=== PATIENT | female | born 2000 | race Caucasian/White ===

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

== ENCOUNTER 2019-06-01 21:07 | Emergency (ER) | payer OTHER ==
[~2019-06-01] VITALS: Ht 162.6 cm; Wt 59.0 kg
[~2019-06-01 21:07] MED LIST changes: +MUPIROCIN22 GM TOP
[2019-06-01] MEDS ORDERED: FLONASE 0.05%50 MCG NARES (21:23)
[2019-06-01 22:15] LABS: INFLUENZA A ANTIGEN Negative (Negative); INFLUENZA B ANTIGEN Negative (Negative)
[2019-06-01] MEDS ORDERED: PROMETHAZINE V120 ML PO (22:37)
[2019-06-01 22:46] VITALS: BP 140/70
== END 2019-06-01 22:47 | disposition home or self-care (01) ==
LOC: M.ERS 21:07
PROVIDERS: Physician Assistant
DX: J06.9 Acute upper respiratory infection, unspecified (principal); G47.419 Narcolepsy without cataplexy; F90.9 Attention-deficit hyperactivity disorder, unspecified type; F84.0 Autistic disorder; Z91.040 Latex allergy status; Z88.6 Allergy status to analgesic agent

== ENCOUNTER 2019-06-08 23:11 | Emergency (ER) | payer OTHER ==
[~2019-06-08] VITALS: Ht 162.6 cm; Wt 59.0 kg
[~2019-06-08 23:11] MED LIST changes: +FLONASE 0.05%50 MCG NARES; +PROMETHAZINE V120 ML PO
[2019-06-08 23:33] LABS: URINE BILIRUBIN NEGATIVE (Negative); URINE BLOOD 1+ (Negative); URINE CLARITY CLEAR; URINE COLOR YELLOW; URINE GLUCOSE-RANDOM NEGATIVE (Negative); URINE KETONES NEGATIVE (Negative); URINE LEUKOCYTES-REFLEX NEGATIVE (Negative); URINE NITRITE-REFLEX NEGATIVE (Negative); URINE PROTEIN TRACE (Negative); URINE SPECIFIC GRAVITY >= 1.030 (1.005-1.030); URINE UROBILINOGEN 0.2 E.U./dl (0.2-1.0)
[2019-06-08 23:41] LABS: SQUAMOUS >10 Many /LPF (0-3)
[2019-06-08 23:42] LABS: BACTERIA-REFLEX 1-9 Few /HPF (None Seen); CASTS None Seen /LPF (None Seen); CRYSTALS None Seen /LPF (None Seen); MUCUS 0-3 Light strn/LPF (None Seen); URINE RBC 0-2 Rare /HPF (0-2); URINE WBC-REFLEX 0-5 Rare /HPF (0-5)
[2019-06-08 23:54] LABS: ABSOLUTE BASOPHILS 0.1 thou/uL (0.0-0.2); ABSOLUTE EOSINOPHILS 0.1 thou/uL (0.0-0.7); ABSOLUTE MONOCYTES 0.6 thou/uL (0.0-1.2); ABSOLUTE NEUTROPHILS 2.5 thou/uL (1.6-8.1); BASOPHILS 1.1 %; EOSINOPHILS 2.3 %; HEMATOCRIT 37.6 % (37.0-47.0); HEMOGLOBIN 12.8 gm/dL (12.0-15.0); LYMPHOCYTES 38.1 %; MCH 31.2 pg (26.0-34.0); MCHC 33.9 g/dL (28.0-37.0); MONOCYTES 10.7 %; MPV 8.8 fl. (7.2-11.1); NUCLEATED RBCS 0 /100WBC; PLATELET COUNT* 243 thou/uL (150-400); POLYS 47.8 %; RBC 4.09 mil/uL (4.20-5.00); RDW-CV 12.9 % (10.5-14.5); WBC 5.2 thou/uL (4.0-11.0)
[2019-06-09 00:01] LABS: CALCIUM 9.4 mg/dL (8.5-10.1); CREATININE 0.8 mg/dL (0.6-1.3); POTASSIUM 3.7 mmol/L (3.5-5.1)
[2019-06-09 00:07] LABS: TOTAL BILIRUBIN 0.2 mg/dL (<0.1-1.0); TOTAL PROTEIN 7.4 g/dL (6.4-8.2)
[2019-06-09] MEDS ORDERED: AUGMENTIN 875-1 EACH PO (01:44)
[2019-06-09] MEDS ORDERED: HYDROCODON-ACE1 EAC8 PO (01:44)
[2019-06-09] MEDS ORDERED: ZOFRAN ODT4 MG PO (01:44)
[2019-06-09 01:56] VITALS: BP 126/62
== END 2019-06-09 01:57 | disposition home or self-care (01) ==
LOC: M.ERS 23:11
PROVIDERS: Emergency Medicine
DX: R10.31 Right lower quadrant pain (principal); F90.9 Attention-deficit hyperactivity disorder, unspecified type; Z88.6 Allergy status to analgesic agent; Z91.040 Latex allergy status; Z88.5 Allergy status to narcotic agent

== ENCOUNTER 2019-07-05 20:47 | Emergency (ER) | payer OTHER ==
[~2019-07-05] VITALS: Ht 162.6 cm; Wt 59.0 kg
[~2019-07-05 20:47] MED LIST changes: +HYDROCODON-ACE1 EAC8 PO
[2019-07-05 20:57] VITALS: BP 134/87
[2019-07-05] MEDS ORDERED: VALACYCLOVIR1000 MG PO (21:09)
[2019-07-05] MEDS ORDERED: IBU800 MG PO (21:09)
[2019-07-05] MEDS ORDERED: ZOVIRAX30 GM TOP (21:09)
== END 2019-07-05 21:18 | disposition home or self-care (01) ==
LOC: M.ERS 20:47
DX: B02.9 Zoster without complications (principal); F90.9 Attention-deficit hyperactivity disorder, unspecified type; Z88.6 Allergy status to analgesic agent; Z88.5 Allergy status to narcotic agent; Z91.040 Latex allergy status

== ENCOUNTER 2019-10-31 23:18 | Emergency (ER) | payer OTHER ==
[~2019-10-31] VITALS: Ht 162.6 cm; Wt 63.5 kg
[~2019-10-31 23:18] MED LIST changes: +IBU800 MG PO; +VALACYCLOVIR1000 MG PO; +ZOVIRAX30 GM TOP
[2019-11-01 00:01] LABS: URINE BILIRUBIN NEGATIVE (Negative); URINE BLOOD NEGATIVE (Negative); URINE CLARITY CLEAR; URINE COLOR YELLOW; URINE GLUCOSE-RANDOM NEGATIVE (Negative); URINE KETONES NEGATIVE (Negative); URINE LEUKOCYTES-REFLEX NEGATIVE (Negative); URINE NITRITE-REFLEX NEGATIVE (Negative); URINE PROTEIN NEGATIVE (Negative); URINE SPECIFIC GRAVITY 1.025 (1.005-1.030); URINE UROBILINOGEN 0.2 E.U./dl (0.2-1.0)
[2019-11-01 00:02] LABS: ABSOLUTE EOSINOPHILS 0.1 thou/uL (0.0-0.7); ABSOLUTE LYMPHOCYTES 0.8 thou/uL (0.8-5.3); ABSOLUTE MONOCYTES 0.3 thou/uL (0.0-1.2); ABSOLUTE NEUTROPHILS 2.4 thou/uL (1.6-8.1); BASOPHILS 0.7 %; HEMATOCRIT 37.4 % (37.0-47.0); LYMPHOCYTES 22.5 %; MCH 31.8 pg (26.0-34.0); MCHC 34.8 g/dL (28.0-37.0); MCV 91.4 fL (80.0-100.0); MONOCYTES 7.6 %; MPV 9.1 fl. (7.2-11.1); NUCLEATED RBCS 0 /100WBC; PLATELET COUNT* 187 thou/uL (150-400); POLYS 67.2 %; RBC 4.09 mil/uL (4.20-5.00); RDW-CV 12.8 % (10.5-14.5); WBC 3.6 thou/uL (4.0-11.0)
[2019-11-01 00:09] LABS: CALCIUM 8.3 mg/dL (8.5-10.1); CREATININE 0.8 mg/dL (0.6-1.3); POTASSIUM 3.7 mmol/L (3.5-5.1)
[2019-11-01 00:13] LABS: ALBUMIN 3.8 g/dL (3.4-5.0); TOTAL BILIRUBIN 0.6 mg/dL (<0.1-1.0); TOTAL PROTEIN 6.8 g/dL (6.4-8.2)
[2019-11-01] MEDS ORDERED: CYCLOBENZAPRINE5 MG PO (00:45)
[2019-11-01] MEDS ORDERED: TORADOL 10 MG T10 MG PO (00:45)
[2019-11-01] MEDS ORDERED: HYDROCODON-ACE1 EAC7 PO (00:45)
[2019-11-01 01:17] VITALS: BP 112/52
== END 2019-11-01 01:17 | disposition home or self-care (01) ==
LOC: M.ERS 23:18
PROVIDERS: Personal Emergency Response Attendant
DX: M54.5 Low back pain (principal); F90.9 Attention-deficit hyperactivity disorder, unspecified type; F84.0 Autistic disorder; F12.90 Cannabis use, unspecified, uncomplicated; Z88.5 Allergy status to narcotic agent; Z88.6 Allergy status to analgesic agent; Z91.040 Latex allergy status

== ENCOUNTER 2020-03-28 14:57 | Emergency (ER) | payer OTHER ==
[~2020-03-28] VITALS: Ht 162.6 cm; Wt 59.0 kg
[~2020-03-28 14:57] MED LIST changes: +CYCLOBENZAPRINE5 MG PO; +HYDROCODON-ACE1 EAC7 PO; +TORADOL 10 MG T10 MG PO
[2020-03-28] MEDS ORDERED: PENICILLIN V P500 MG PO (15:24)
[2020-03-28] MEDS ORDERED: PERIDEX 0.12%473 M1 SWISH&SPIT (15:24)
[2020-03-28] MEDS ORDERED: NORCO 5-325 TA1 EAC2 PO (15:25)
[2020-03-28 15:45] VITALS: BP 139/84
== END 2020-03-28 15:47 | disposition home or self-care (01) ==
LOC: M.ERS 14:57
DX: K08.89 Other specified disorders of teeth and supporting structures (principal); Z88.6 Allergy status to analgesic agent; Z91.040 Latex allergy status; Z88.5 Allergy status to narcotic agent

== ENCOUNTER 2020-04-15 18:54 | Emergency (ER) | payer OTHER ==
[~2020-04-15] VITALS: Ht 162.6 cm; Wt 60.8 kg
[~2020-04-15 18:54] MED LIST changes: +NORCO 5-325 TA1 EAC2 PO; +PENICILLIN V P500 MG PO; +PERIDEX 0.12%473 M1 SWISH&SPIT
[2020-04-15 20:32] LABS: ABSOLUTE EOSINOPHILS 0.1 thou/uL (0.0-0.7); ABSOLUTE MONOCYTES 0.4 thou/uL (0.0-1.2); ABSOLUTE NEUTROPHILS 1.9 thou/uL (1.6-8.1); BASOPHILS 1.4 %; EOSINOPHILS 2.5 %; HEMATOCRIT 36.9 % (37.0-47.0); HEMOGLOBIN 12.8 gm/dL (12.0-15.0); LYMPHOCYTES 28.6 %; MCH 31.6 pg (26.0-34.0); MCHC 34.6 g/dL (28.0-37.0); MCV 91.3 fL (80.0-100.0); MONOCYTES 11.2 %; MPV 10.4 fl. (7.2-11.1); NUCLEATED RBCS 0 /100WBC; PLATELET COUNT* 191 thou/uL (150-400); POLYS 56.3 %; RBC 4.04 mil/uL (4.20-5.00); RDW-CV 12.6 % (10.5-14.5); WBC 3.3 thou/uL (4.0-11.0)
[2020-04-15 20:44] LABS: CALCIUM 8.4 mg/dL (8.5-10.1); CREATININE 0.9 mg/dL (0.6-1.3); POTASSIUM 3.8 mmol/L (3.5-5.1)
[2020-04-15 20:50] LABS: ALBUMIN 3.8 g/dL (3.4-5.0); TOTAL BILIRUBIN 0.4 mg/dL (<0.1-1.0); TOTAL PROTEIN 6.4 g/dL (6.4-8.2)
[2020-04-15 21:44] VITALS: BP 118/69
--- NOTE | 2020-04-17 13:58 | EKG ---
[place] [address] ELECTROCARDIOGRAM REPORT Name: VALE WATT Room: [facility]#: [id number] Admission: 04/15/20 Attend Phys: Discharge: 04/15/20 Date of : [birth year] Date of Service: 04/15/20 1900 Report #: [id number] THIS REPORT FOR: //name// [facility] ED Test Date: 2020-04-15 Test Time: 19:00:06 Pat Name: VALE WATT Department: Room: Gender: Outpatient Case Manager: PA : 2000 Requested By: Eileen Hammer Order Number: [id number] MD: Jadon Betancourt Measurements Intervals [place] Rate: 59 P: 90 MI: 96 QRS: 66 QRSD: 122 T: -31 QT: 429 QTc: 425 Interpretive Statements Sinus rhythm Atrial premature complexes in couplets Short MI interval Nonspecific T wave flattening No previous ECG available for comparison Electronically Signed On 04-17-2020 13:57:54 CDT by Jadon Betancourt [email or web address] <ELECTRONICALLY SIGNED> By: Jadon Betancourt MD, [facility] 04/17/20 1357 1900 99 Jadon Betancourt MD, [facility] /EPI
== END 2020-04-15 21:45 | disposition home or self-care (01) ==
LOC: M.ERS 18:54
PROVIDERS: Personal Emergency Response Attendant
DX: R07.89 Other chest pain (principal); M25.552 Pain in left hip; Z88.5 Allergy status to narcotic agent; Z88.6 Allergy status to analgesic agent; Z91.040 Latex allergy status

== ENCOUNTER 2020-04-28 21:55 | Emergency (ER) | payer OTHER ==
[~2020-04-28] VITALS: Ht 162.6 cm; Wt 60.8 kg
[2020-04-28] MEDS ORDERED: COMPAZINE10 M2 PO (23:35)
[2020-04-29 00:01] VITALS: BP 128/62
== END 2020-04-29 00:01 | disposition home or self-care (01) ==
LOC: M.ERS 21:55
DX: G43.909 Migraine, unspecified, not intractable, without status migrainosus (principal); Z88.6 Allergy status to analgesic agent; Z91.040 Latex allergy status

== ENCOUNTER 2020-07-25 19:18 | Emergency (ER) | payer OTHER ==
[~2020-07-25] VITALS: Ht 162.6 cm; Wt 59.0 kg
[~2020-07-25 19:18] MED LIST changes: +COMPAZINE10 M2 PO
[2020-07-25 19:43] LABS: URINE BILIRUBIN NEGATIVE (Negative); URINE BLOOD 1+ (Negative); URINE CLARITY HAZY; URINE COLOR YELLOW; URINE GLUCOSE-RANDOM NEGATIVE (Negative); URINE KETONES NEGATIVE (Negative); URINE LEUKOCYTES-REFLEX TRACE (Negative); URINE NITRITE-REFLEX NEGATIVE (Negative); URINE PROTEIN NEGATIVE (Negative); URINE SPECIFIC GRAVITY 1.025 (1.005-1.030)
[2020-07-25 19:44] LABS: SQUAMOUS >10 Many /LPF (0-3); URINE RBC 0-2 Rare /HPF (0-2); URINE WBC-REFLEX 0-5 Rare /HPF (0-5)
[2020-07-25 19:45] LABS: BACTERIA-REFLEX None Seen /HPF (None Seen)
[2020-07-25] MEDS ORDERED: KEFLEX500 M1 PO (20:33)
[2020-07-25] MEDS ORDERED: CYCLOBENZAPRINE5 MG PO (20:33)
[2020-07-25] MEDS ORDERED: TORADOL 10 MG T10 MG PO (20:33)
[2020-07-25 20:37] VITALS: BP 135/89
[2020-07-25 20:39] LABS: CASTS None Seen /LPF (None Seen); CRYSTALS None Seen /LPF (None Seen)
== END 2020-07-25 20:39 | disposition home or self-care (01) ==
LOC: M.ERS 19:18
PROVIDERS: Personal Emergency Response Attendant
DX: R10.31 Right lower quadrant pain (principal); Z88.6 Allergy status to analgesic agent; Z91.040 Latex allergy status; Z88.5 Allergy status to narcotic agent

== ENCOUNTER 2021-04-12 22:43 | Emergency (ER) | payer OTHER ==
[~2021-04-12] VITALS: Ht 160 cm; Wt 59.0 kg
[~2021-04-12 22:43] MED LIST changes: +KEFLEX500 M1 PO
[2021-04-13 01:44] VITALS: BP 114/71
--- NOTE | 2021-04-13 16:17 | EKG ---
[place] [address] ELECTROCARDIOGRAM REPORT Name: VALE WATT Room: [facility]#: [id number] Admission: 04/12/21 Attend Phys: Discharge: 04/13/21 Date of : [birth year] Date of Service: 04/12/212252 Report #: [id number] THIS REPORT FOR: //name// [facility] ED Test Date: 2021-04-12 Test Time: 22:53:16 Pat Name: VALE WATT Department: Room: Gender: F Documentation Billing Clerk: : 2000 Requested By: Eileen Hammer Order Number: [id number] MD: Salo Campo Measurements Intervals [place] Rate: 100 P: 84 ME: 120 QRS: 84 QRSD: 83 T: -85 QT: 305 QTc: 394 Interpretive Statements Sinus tachycardia Consider right atrial enlargement Borderline repolarization abnormality Baseline wander in lead(s) II,III,aVF Compared to ECG 04/15/2020 19:00:06 Sinus rate has increased Atrial premature complex(es) no longer present Short ME interval no longer present T-wave abnormality is more pronounced Electronically Signed On 04-13-2021 16:16:49 CDT by Salo Campo [email or web address] <ELECTRONICALLY SIGNED> By: Salo Campo MD, [facility] 04/13/21 1616 52 52 Salo Campo MD, [facility] /EPI
--- NOTE | 2021-04-13 16:18 | EKG ---
[place] [address] ELECTROCARDIOGRAM REPORT Name: VALE WATT Room: [facility]#: [id number] Admission: 04/12/21 Attend Phys: Discharge: 04/13/21 Date of : [birth year] Date of Service: 04/13/21 0120 Report #: [id number] THIS REPORT FOR: //name// [facility] ED Test Date: 2021-04-13 Test Time: 01:20:39 Pat Name: VALE WATT Department: Room: Gender: F Senior Analyst Programmer: JILLIAN : 2000 Requested By: Eileen Hammer Order Number: [id number] Carina MD: Salo Campo Measurements Intervals [place] Rate: 73 P: 84 MA: 122 QRS: 62 QRSD: 83 T: -81 QT: 353 QTc: 389 Interpretive Statements Sinus rhythm Borderline repolarization abnormality Baseline wander in lead(s) aVF,V3 Compared to ECG 04/12/2021 22:53:16 Sinus tachycardia no longer present Electronically Signed On 04-13-2021 16:17:44 CDT by Salo Campo [email or web address] <ELECTRONICALLY SIGNED> By: Salo Campo MD, [facility] 04/13/21 1617 9 Salo Campo MD, [facility] /EPI
== END 2021-04-13 01:45 | disposition home or self-care (01) ==
LOC: M.ERS 22:43
DX: U07.1 COVID-19 (principal); R51.9 Headache, unspecified; J02.8 Acute pharyngitis due to other specified organisms; Z88.5 Allergy status to narcotic agent; Z88.6 Allergy status to analgesic agent; Z91.040 Latex allergy status

== ENCOUNTER 2021-07-06 22:33 | Emergency (ER) | payer OTHER ==
[~2021-07-06] VITALS: Ht 162.6 cm; Wt 63.5 kg
[2021-07-06 22:59] LABS: URINE BILIRUBIN NEGATIVE (Negative); URINE BLOOD NEGATIVE (Negative); URINE CLARITY CLEAR; URINE COLOR YELLOW; URINE GLUCOSE-RANDOM NEGATIVE (Negative); URINE KETONES NEGATIVE (Negative); URINE LEUKOCYTES-REFLEX NEGATIVE (Negative); URINE NITRITE-REFLEX NEGATIVE (Negative); URINE PROTEIN NEGATIVE (Negative); URINE SPECIFIC GRAVITY 1.025 (1.005-1.030); URINE UROBILINOGEN 0.2 E.U./dl (0.2-1.0)
[2021-07-06 23:17] LABS: ABSOLUTE EOSINOPHILS 0.1 thou/uL (0.0-0.7); ABSOLUTE LYMPHOCYTES 1.2 thou/uL (0.8-5.3); ABSOLUTE MONOCYTES 0.4 thou/uL (0.0-1.2); ABSOLUTE NEUTROPHILS 3.9 thou/uL (1.6-8.1); BASOPHILS 0.8 %; EOSINOPHILS 1.6 %; HEMATOCRIT 38.8 % (37.0-47.0); LYMPHOCYTES 22.1 %; MCH 30.6 pg (26.0-34.0); MCHC 33.4 g/dL (28.0-37.0); MCV 91.7 fL (80.0-100.0); MONOCYTES 6.3 %; MPV 8.8 fl. (7.2-11.1); NUCLEATED RBCS 0 /100WBC; PLATELET COUNT* 221 thou/uL (150-400); POLYS 69.2 %; RBC 4.24 mil/uL (4.20-5.00); RDW-CV 13.4 % (10.5-14.5); WBC 5.6 thou/uL (4.0-11.0)
[2021-07-06 23:26] LABS: CALCIUM 8.7 mg/dL (8.5-10.1); CREATININE 0.8 mg/dL (0.6-1.3); POTASSIUM 3.7 mmol/L (3.5-5.1)
[2021-07-06 23:30] LABS: ALBUMIN 4.1 g/dL (3.4-5.0); TOTAL BILIRUBIN 0.3 mg/dL (<0.1-1.0); TOTAL PROTEIN 7.5 g/dL (6.4-8.2)
[2021-07-06] MEDS ORDERED: NOHOMEMEDICATIONS (23:38)
[2021-07-07] MEDS ORDERED: TRAMADOL 50 MG50 MG PO (01:14)
[2021-07-07 01:23] VITALS: BP 126/81
== END 2021-07-07 01:24 | disposition home or self-care (01) ==
LOC: M.ERS 22:33
PROVIDERS: Emergency Medicine
DX: R10.2 Pelvic and perineal pain (principal); R11.0 Nausea; R30.9 Painful micturition, unspecified; F90.9 Attention-deficit hyperactivity disorder, unspecified type; F84.0 Autistic disorder; F17.210 Nicotine dependence, cigarettes, uncomplicated; Z88.6 Allergy status to analgesic agent; Z88.5 Allergy status to narcotic agent; Z91.040 Latex allergy status

== ENCOUNTER 2021-07-14 22:10 | Emergency (ER) | payer OTHER ==
[~2021-07-14] VITALS: Ht 162.6 cm; Wt 63.5 kg
[2021-07-14 22:38] LABS: URINE BILIRUBIN NEGATIVE (Negative); URINE BLOOD NEGATIVE (Negative); URINE CLARITY CLEAR; URINE COLOR YELLOW; URINE GLUCOSE-RANDOM NEGATIVE (Negative); URINE KETONES TRACE (Negative); URINE LEUKOCYTES-REFLEX NEGATIVE (Negative); URINE NITRITE-REFLEX NEGATIVE (Negative); URINE PROTEIN NEGATIVE (Negative)
[2021-07-14 22:44] LABS: AMP/METHAMP Negative (Negative); BARBITURATES Negative (Negative); BENZODIAZEPINES Negative (Negative); COCAINE Negative (Negative); METHADONE Negative (Negative); OPIATES Negative (Negative); PCP Negative (Negative); THC Negative (Negative)
[2021-07-14 23:02] LABS: CALCIUM 8.5 mg/dL (8.5-10.1); CREATININE 0.8 mg/dL (0.6-1.3); POTASSIUM 3.7 mmol/L (3.5-5.1)
[2021-07-14 23:04] LABS: ABSOLUTE EOSINOPHILS 0.1 thou/uL (0.0-0.7); ABSOLUTE LYMPHOCYTES 1.5 thou/uL (0.8-5.3); ABSOLUTE MONOCYTES 0.4 thou/uL (0.0-1.2); ABSOLUTE NEUTROPHILS 1.7 thou/uL (1.6-8.1); BASOPHILS 1.3 %; EOSINOPHILS 1.8 %; HEMATOCRIT 36.6 % (37.0-47.0); HEMOGLOBIN 12.3 gm/dL (12.0-15.0); LYMPHOCYTES 40.1 %; MCH 30.5 pg (26.0-34.0); MCHC 33.6 g/dL (28.0-37.0); MCV 90.7 fL (80.0-100.0); MPV 9.2 fl. (7.2-11.1); NUCLEATED RBCS 0 /100WBC; PLATELET COUNT* 226 thou/uL (150-400); POLYS 44.8 %; RBC 4.04 mil/uL (4.20-5.00); RDW-CV 13.6 % (10.5-14.5); WBC 3.7 thou/uL (4.0-11.0)
[2021-07-14 23:07] LABS: ALBUMIN 4.2 g/dL (3.4-5.0); TOTAL BILIRUBIN 0.5 mg/dL (<0.1-1.0); TOTAL PROTEIN 7.7 g/dL (6.4-8.2)
[2021-07-14] MEDS ORDERED: PRILOSEC OTC20 MG PO (23:55)
[2021-07-14] MEDS ORDERED: ZOFRAN ODT4 MG PO (23:55)
[2021-07-14] MEDS ORDERED: CARAFATE 1 GM TA1 GM PO (23:55)
[2021-07-15 00:06] VITALS: BP 132/77
== END 2021-07-15 00:06 | disposition home or self-care (01) ==
LOC: M.ERS 22:10
PROVIDERS: Emergency Medicine
DX: R10.12 Left upper quadrant pain (principal); F90.9 Attention-deficit hyperactivity disorder, unspecified type; Z88.6 Allergy status to analgesic agent; Z88.5 Allergy status to narcotic agent; Z91.040 Latex allergy status